=== PATIENT | female | born 1985 | race African-American/Black ===

== ENCOUNTER 2019-10-18 17:20 | Emergency (ER) | payer MEDICARE, OTHER ==
[~2019-10-18 17:20] MED LIST: Iopamidol 370 76% 125 ML VIAL FS ONE; Sodium Chloride 0.9% 100 ML BAG ONE
[2019-10-18 17:46] LABS: Prothrombin Time 13.1 SEC (12.0-14.7)
[2019-10-18 17:47] LABS: PTT 71.3 SEC (22.9-36.1)
--- NOTE | 2019-10-18 17:54 | CT ---
CT Stroke Protocol: 10/18/2019 5:29 PM CLINICAL HISTORY: Altered mental status; history of end-stage renal disease and diabetes. IMAGING TECHNIQUE: Multiple CT images were obtained of the brain without IV contrast. COMPARISON: None. FINDINGS: Motion artifact limits image detail. Brain: No acute infarct, hemorrhage or hydrocephalus is present. There is moderate to severe chronic small vessel white matter ischemic change. Ventricles: Normal. No hydrocephalus.. Skull: Intact.. Visualized Paranasal sinuses: Clear.. Mastoid air cells:Clear. Extracranial soft tissues:Normal. IMPRESSION: No acute intracranial abnormality. Findings called to Dr. Leiva at 5:50 PM on October 18, 2019.
[2019-10-18 17:55] LABS: Acetaminophen Less than 6.0 mcg/mL (10.0-30.0); Alcohol Less than 10 mg/dL (Less than 10); Lipase 81 U/L (8-78); Salicylate Less than 8.0 mg/dL (15.0-30.0)
[2019-10-18 18:02] LABS: Anisocytosis SLIGHT = 6-15 cells (100X) (0-5/hpf); Band 1 % (5-11); Eosinophils 9 % (0-10); Hemoglobin 11.3 g/dL (12.0-16.0); Lymphocytes 25 % (21-51); MDiff Complete? YES; Mean Corpuscular HGB CONC 29.9 g/dL (32.0-36.0); Mean Corpuscular Hemoglobin 25.5 pg (27.0-31.0); Mean Corpuscular Volume 85.2 fL (78.0-98.0); Mean Platelet Volume 10.8 fL (7.4-10.4); Monocytes 4 % (0-10); Neutrophil 61 % (42-75); Platelet Count 248 thou/uL (130-400); Platelet Morphology Comment Appears Adequate; RBC Distribution Width 17.7 % (11.5-14.5); RBC Morphology Normal; Red Blood Cell (RBC) Count 4.42 mill/uL (4.20-5.40); White Blood Cell (WBC) Count 8.7 thou/uL (4.8-10.8)
[2019-10-18 18:06] LABS: ALT (SGPT) 21 U/L (8-55); Albumin 3.8 g/dL (3.5-5.0); Alkaline Phosphatase 210 U/L (40-110); Anion Gap 20 mmol/L (10-20); BUN (Urea Nitrogen) 16 mg/dL (7.0-18.7); Bilirubin, Total 0.4 mg/dL (0.2-1.2); Calc. Creatinine Clearance 0 mL/min (70-130); Calcium 9.1 mg/dL (7.8-10.44); Carbon Dioxide 28 mmol/L (22-29); Chloride 95 mmol/L (98-107); Estimated GFR-MDRD 20; Globulin 4.7 g/dL (2.4-3.5); Glucose 152 mg/dL (70-105); Potassium 4.3 mmol/L (3.5-5.1); Protein, Total 8.5 g/dL (6.0-8.3); Sodium 139 mmol/L (136-145)
[2019-10-18 18:07] LABS: AST (SGOT) 20 U/L (5-34)
--- NOTE | 2019-10-18 18:20 | CT ---
CTA of the head with IV contrast and 3-D reformatted imaging. CTA of the neck with IV contrast and 3-D reformatted imaging. INDICATION: Altered mental status with history of end-stage renal disease and diabetes COMPARISON: Noncontrast CT the brain dated October 18, 2019 FINDINGS: CTA OF THE HEAD WITH CONTRAST: There is slight diminished opacification of the intraluminal contrast beyond the cervical ICAs and rajan th the ICAs and vertebral arteries without visible thrombus and is likely related to exam technique and slight out run of the arterial contrast bolus with the exam. The extent opacification of the intr acranial arteries is adequate diagnostic quality. CTA OF THE BRAIN: Right ICA: Patent. There is prominent vascular calcifications involving the cavernous and supraclino id right ICA. Right MCA: Patent. Right CASANDRA: Patent. ACOM: Patent. Left ICA: There is prominent vascular consultation involving the cavernous and supraclinoid left ICA . Left MCA: Patent. Left CASANDRA: Patent. PCOMs: Patent. Vertebral arteries: Prominent vascular calcification involving the intracranial vertebral arteries. No definite stenosis is evident. Basilar Artery: Patent. smart energy specialist: Patent. Incidentals: Moderate to severe chronic small vessel white matter ischemic change. No abnormal enhan cement. CTA OF THE NECK WITH CONTRAST: Right CCA: Patent. Right ICA: The distal right cervical ICA is not well seen due to motion artifact. The remaining ICA appears patent. Right Subclavian: Patent. Right Vertebral Artery: Patent. Left CCA: Patent. Left ICA: The distal left ICA is not well seen due to prominent motion artifact. The remaining ICA a ppears patent. Left Subclavian: There is mild atherosclerotic narrowing involving the mid left subclavian artery. Left Vertebral Artery: Patent. Aerodigestive tract: Clear. Parotids/Submandibular/Thyroid glands: Normal. Lymph nodes: No pathologically enlarged lymph nodes. Lung Apices: Clear. Bones: No acute osseous abnormality. Incidentals: None. IMPRESSION: 1. No hemodynamically significant stenosis, occlusion or aneurysmal formation. 2. Limitations to the exam as above.
== END 2019-10-18 19:06 | disposition short-term general hospital (02) ==
LOC: MADERS 17:20
DX: R41.82 Altered mental status, unspecified (principal); E11.22 Type 2 diabetes mellitus with diabetic chronic kidney disease; N18.9 Chronic kidney disease, unspecified; E66.9 Obesity, unspecified; Z89.612 Acquired absence of left leg above knee; Z89.611 Acquired absence of right leg above knee; Z99.2 Dependence on renal dialysis; Z86.73 Personal history of transient ischemic attack (TIA), and cerebral infarction without residual deficits
CPT/HCPCS: 36416; 70450; 70496; 70498; 80053; 80307; 83690; 84443; 85025; 85610; 85730; 93005; A4353; J3490; Q9967

== ENCOUNTER 2020-06-17 12:04 | Emergency (ER) | payer MEDICARE, OTHER ==
[~2020-06-17 12:04] MED LIST changes: -Iopamidol 370 76% 125 ML VIAL FS ONE
[2020-06-17 12:55] LABS: Bilirubin Negative (Negative); Blood, Urine Small (Negative); Clarity Cloudy (Clear); Glucose, Urine (Dipstick) Negative (Negative); Ketone, Urine Negative (Negative); Leukocyte Negative (Negative); Nitrite Negative (Negative); Protein, Urine (Dipstick) 100 mg/dL (Neg-Trace); Urobilinogen 0.2 mg/dL (Less than 2); pH, Urine 8.5 (5.0-9.0)
--- NOTE | 2020-06-17 12:55 | RAD ---
XR Chest 1 View Portable HISTORY: Dyspnea COMPARISON: None FINDINGS: The heart size is normal. There is a right-sided dialysis catheter with tip in the projecti on of the SVC. The lungs are well expanded without focal areas of consolidation, pneumothorax or pleural effusions. IMPRESSION: No radiographic evidence of acute cardiopulmonary process.
[2020-06-17 12:56] LABS: Bacteria/HPF 3+ HPF (None Seen); Squamous Epithelial 0-3 HPF (0-3); WBC/HPF 0-3 HPF (0-3)
--- NOTE | 2020-06-17 13:27 | CT ---
CT of abdomen and pelvis: 06/17/2020 COMPARISON: None available HISTORY: Abdominal pain and vomiting, end-stage renal disease TECHNIQUE: Axial CT imaging at 5 mm intervals from lung bases through pubic symphysis without contras t. Coronal reformatted imaging obtained. FINDINGS: Lack of contrast media limits assessment of the viscera, bowel, vascular structures, and fo r lymphadenopathy. Nonspecific increased linear density noted within both lung bases, left greater than right. Probable trace left pleural effusion. No free intraperitoneal air. Limited assessment of the liver, gallbladder, and spleen demonstrate no acute findings. Extensive coarse calcification noted within the pancreas suggesting chronic pancreatitis. The adrenal glands and the kidneys demonstrate no acute findings. Chronic-appearing diastasis is seen involving the pubic symphysis and there is mild bilateral sacroil iac joint diastases with associated erosive change. 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 There is hyperdense material within the distal colon which includes the sigmoid colon and rectum, which may be related to administration of contrast media in th e past during enema. A Navarro's pouch is suspected. There is a colostomy in the mid left abdomen. There is an additional right lower quadrant ostomy which may be related to an ileal conduit or an add itional small bowel ostomy. The bones are diffusely mottled suggesting renal osteodystrophy. There is an IVC filter present. There is scattered atherosclerotic calcification of the branches of t he abdominal aorta. There is no evidence for bowel obstruction. No intra-abdominal fluid collection or discrete mass lesion. A nonspecific mildly enlarged lymph node is noted along the external iliac chain on the right measuri ng approximately 1.5 cm. A similar 1.2 cm node is seen along the left external iliac chain. Multiple small bowel suture lines are noted within the right abdomen. IMPRESSION: Numerous chronic appearing findings as detailed above. No free intraperitoneal air, evide nce of small bowel obstruction, or evidence of obstructive uropathy. Patchy opacity in both lung bases may signify volume loss, scar, or infectious pneumonitis.
[2020-06-17 13:57] LABS: Hemoglobin 12.5 g/dL (12.0-16.0); Mean Corpuscular HGB CONC 29.7 g/dL (32.0-36.0); Mean Corpuscular Hemoglobin 25.9 pg (27.0-31.0); Mean Corpuscular Volume 87.3 fL (78.0-98.0); Mean Platelet Volume 8.3 fL (7.4-10.4); Platelet Count 300 thou/uL (130-400); RBC Distribution Width 15.5 % (11.5-14.5); Red Blood Cell (RBC) Count 4.84 mill/uL (4.20-5.40); White Blood Cell (WBC) Count 11.6 thou/uL (4.8-10.8)
[2020-06-17 13:58] LABS: Manual Diff?? YES
[2020-06-17 14:03] LABS: MDiff Complete? YES
[2020-06-17 14:06] LABS: ALT (SGPT) 40 U/L (8-55); AST (SGOT) 18 U/L (5-34); Albumin 4.3 g/dL (3.5-5.0); Alkaline Phosphatase 136 U/L (40-110); Anion Gap 23 mmol/L (10-20); BUN (Urea Nitrogen) 96 mg/dL (7.0-18.7); Bilirubin, Total 0.4 mg/dL (0.2-1.2); CK (CPK) 59 U/L (29-168); Calc. Creatinine Clearance 0 mL/min (70-130); Calcium 10.1 mg/dL (7.8-10.44); Carbon Dioxide 23 mmol/L (22-29); Chloride 96 mmol/L (98-107); Globulin 4.4 g/dL (2.4-3.5); Glucose 137 mg/dL (70-105); Lipase 21 U/L (8-78); Potassium 6.4 mmol/L (3.5-5.1); Protein, Total 8.7 g/dL (6.0-8.3); Sodium 136 mmol/L (136-145)
[2020-06-17 14:07] LABS: Band 2 % (5-11); Eosinophils 3 % (0-10); Lymphocytes 22 % (21-51); Monocytes 3 % (0-10); Neutrophil 70 % (42-75)
[2020-06-17 14:08] LABS: Anisocytosis SLIGHT = 6-15 cells (100X) (0-5/hpf)
[2020-06-17 14:09] LABS: Platelet Morphology Comment Appears Adequate
[2020-06-17] MEDS ORDERED: Dextrose 50% Abboject 50 ML SYRINGE ONE (14:37)
[2020-06-17] MEDS ORDERED: cefTRIAXone\\ROCEPHIN 1 GM VIAL ONE (14:37)
[2020-06-17] MEDS ORDERED: Insulin Regular 300 UNITS/3 ML VIAL ONE (14:37)
== END 2020-06-17 15:10 ==
LOC: MADERS 12:04
DX: E87.5 Hyperkalemia (principal); N39.0 Urinary tract infection, site not specified; E11.22 Type 2 diabetes mellitus with diabetic chronic kidney disease; I13.2 Hypertensive heart and chronic kidney disease with heart failure and with stage 5 chronic kidney disease, or end stage renal disease; I50.9 Heart failure, unspecified; N18.6 End stage renal disease; K21.9 Gastro-esophageal reflux disease without esophagitis; Z99.2 Dependence on renal dialysis
CPT/HCPCS: 71045; 74176; 80053; 81003; 81015; 82550; 83605; 83690; 84484; 85025; 87086; 93005; 96374; 96375; J0696; J1815; J3490